=== PATIENT | female | born 1960 | race Caucasian/White ===

== ENCOUNTER 2022-04-19 16:13 | Emergency (ER) | payer BC ==
[2022-04-19] MEDS ORDERED: Bupivacaine PF 0.5% 30 ML VIAL ONE (17:28)
[2022-04-19] MEDS ORDERED: Penicillin V Potassium 250 MG TAB ONE (17:41)
[2022-04-19] MEDS ORDERED: HYDROcodone/Acetaminophen 5/325 mg Tablet ONE (17:44)
== END 2022-04-19 18:04 | disposition home or self-care (01) ==
LOC: MADERS 16:13
DX: K08.89 Other specified disorders of teeth and supporting structures (principal)
CPT/HCPCS: 64400; S0020